=== PATIENT | male | born 1935 | race Two or more races ===

== ENCOUNTER 2021-09-22 11:03 | Inpatient (IN) | payer MEDICARE, BC ==
[~2021-09-22] VITALS: Ht 175.3 cm; Wt 48.7 kg
[2021-09-22] MEDS ORDERED: ALBUTEROL SULF 2.5 MG/0.5ML(0.5%) NEB SOLN NEB ONE (12:00)
[2021-09-22] MEDS ORDERED: IPRATROPIUM BROM 0.5 MG/2.5ML INH SOL NEB ONE (12:00)
[2021-09-22 12:25] LABS: Basophils # (auto) 0 10 ^3/uL (0-0.2); Basophils % (auto) 0.3 % (0.0-2.0); Eosinophils # (auto) 0 10 ^3/uL (0-0.8); Hematocrit 47.7 % (41.0-53.0); Hemoglobin 16.1 g/dL (13.5-17.5); Lymphocytes # (auto) 0.7 10 ^3/uL (0.4-5.4); Mean Corpuscular Hemoglobin 31.8 pg (28.0-32.0); Mean Corpuscular Hgb Conc. 33.7 g/dL (32.0-36.0); Mean Corpuscular Volume 94.4 fL (80.0-100.0); Monocytes # (auto) 0.5 10 ^3/uL (0-1.3); Monocytes % (auto) 8.6 % (0.0-12.0); Neutrophils # (auto) 4.1 10 ^3/uL (1.6-8.6); Neutrophils % (auto) 77.1 % (37.0-80.0); Nucleated Red Blood Cells % 0.1 %; Red Blood Cells 5.06 10^6/uL (4.5-5.90); Red Cell Distribution Width 15.1 % (11.8-14.3); White Blood Cell 5.3 10^3/uL (4.4-10.8)
[2021-09-22 12:54] LABS: Potassium 4.7 mmol/L (3.5-5.1)
[2021-09-22] MEDS ORDERED: DexAMETHasone SOD PHOS 4 MG/1ML SDV INJ IM ONE (13:00)
[2021-09-22 13:04] LABS: Albumin 3.1 g/dL (3.4-5.0); BUN/Creatinine Ratio 27.5; Bilirubin, Total 0.6 mg/dL (0.2-1.0); Calcium 8.5 mg/dL (8.5-10.1); Total Protein 6.9 g/dL (6.4-8.2)
[2021-09-22] MEDS ORDERED: NITROGLYCERIN 0.4 MG SL TAB SL PRN ×2 (13:30→14:30)
[2021-09-22] MEDS ORDERED: MORPHINE SULFATE INJECTION 2 MG/ML SYRG IV PRN ×3 (13:30→14:30)
[2021-09-22] MEDS ORDERED: REMDESIVIR PER PHARMACY 0 ML IV SCH (14:30)
[2021-09-22] MEDS ORDERED: LORazepam 0.5 MG TAB PO PRN (14:30)
[2021-09-22] MEDS ORDERED: DOCUSATE SOD 100 MG CAP PO PRN (14:30)
[2021-09-22] MEDS ORDERED: ALUM & MAG HYDROX-SIMETH LIQ(MAALOX) 30 ML PO PRN (14:30)
[2021-09-22] MEDS ORDERED: HYDROcodone-ACET 5/325MG TAB PO PRN (14:30)
[2021-09-22] MEDS ORDERED: SOD CHL 0.45% 1,000 ML IV SCH (14:30)
[2021-09-22] MEDS ORDERED: ONDANSETRON HCL 4 MG/2 ML VIAL IV PRN (14:30)
[2021-09-22] MEDS ORDERED: ACETAMINOPHEN 500 MG TAB PO PRN (14:30)
[2021-09-22] MEDS ORDERED: ACETAMINOPHEN 325 MG TAB PO PRN (14:30)
[2021-09-22 14:48] LABS: Partial Thromboplastin Time 30.3 sec (23.6-33.0)
[2021-09-22] MEDS ORDERED: hydrALAZINE HCL 20 MG/ML VL IV PRN (15:00)
[2021-09-22 15:18] LABS: Cholesterol 139 mg/dL (< 200); Triglycerides 167 mg/dL (< 150)
[2021-09-22 15:21] LABS: HDL Cholesterol 51 mg/dL (40-59); LDL Cholesterol 66 mg/dL (< 100)
[2021-09-22 15:26] LABS: Thyroid Stimulating Hormone 1.21 uIU/mL (0.358-3.74)
[2021-09-22] MEDS ORDERED: cefTRIAXone 1GM/50ML D5W 50 ML IV ONE (15:30)
[2021-09-22 16:25] LABS: Albumin 3.5 g/dL (3.4-5.0); Calcium 8.4 mg/dL (8.5-10.1); Magnesium 2.6 mg/dL (1.6-2.6); Potassium 4.5 mmol/L (3.5-5.1)
[2021-09-22 16:34] LABS: Bilirubin, Total 0.7 mg/dL (0.2-1.0); CRP High Sensitivity 0.84 mg/dL (< 0.3); Total Protein 6.9 g/dL (6.4-8.2)
[2021-09-22] MEDS ORDERED: SODIUM CHLORIDE 0.9% 1,000 ML IV SCH (17:15)
[2021-09-22] MEDS ORDERED: REMDESIVIR 200 MG in NS 210ml LOADING DOSE ADULT IV ONE ×2 (18:00→20:00)
[2021-09-22] MEDS: BUDESONIDE (INHALATION) 180 MCG IH IN SCH (19:38)
[2021-09-22] MEDS: ALBUTEROL SULF HFA 90MCG INH 200DOSE IN PRN (19:39)
[2021-09-22 20:16] LABS: Lactic Acid w/Reflex 2.4 mmol/L (0.4-2.0)
[2021-09-22] MEDS: ENOXAPARIN SOD 40 MG/0.4 ML SYRINGE SC SCH (21:51)
[2021-09-22] MEDS ORDERED: ATORVASTATIN 20 MG TAB PO SCH (22:00)
[2021-09-22 23:07] VITALS: BP 140/59
[2021-09-22] MEDS: DOXYCYCLINE 100MG/250ML 250 ML IV SCH (23:57)
[2021-09-23] MEDS ORDERED: DUTA1CAP PO (05:06)
[2021-09-23] MEDS ORDERED: NITR-87 PO (05:06)
[2021-09-23] MEDS ORDERED: NITR100C6 PO (05:06)
[2021-09-23 05:17] VITALS: BP 125/62
[2021-09-23 05:45] VITALS: BP 125/62
[2021-09-23] MEDS: BUDESONIDE (INHALATION) 180 MCG IH IN SCH ×2 (07:11→21:56)
[2021-09-23] MEDS: ALBUTEROL SULF HFA 90MCG INH 200DOSE IN PRN ×2 (07:11→21:56)
[2021-09-23 07:17] LABS: Albumin 2.6 g/dL (3.4-5.0); Calcium 7.7 mg/dL (8.5-10.1); Magnesium 2.9 mg/dL (1.6-2.6); Potassium 4.1 mmol/L (3.5-5.1)
[2021-09-23 07:51] LABS: BUN/Creatinine Ratio 41.7; Bilirubin, Total 0.5 mg/dL (0.2-1.0); Total Protein 5.8 g/dL (6.4-8.2); Uric Acid 3.2 mg/dL (3.5-7.2)
[2021-09-23 08:39] LABS: Basophils # (auto) 0 10 ^3/uL (0-0.2); Basophils % (auto) 0.9 % (0.0-2.0); Eosinophils # (auto) 0 10 ^3/uL (0-0.8); Hematocrit 43.2 % (41.0-53.0); Hemoglobin 14.9 g/dL (13.5-17.5); Lymphocytes # (auto) 0.6 10 ^3/uL (0.4-5.4); Mean Corpuscular Hemoglobin 31.8 pg (28.0-32.0); Mean Corpuscular Hgb Conc. 34.4 g/dL (32.0-36.0); Mean Corpuscular Volume 92.4 fL (80.0-100.0); Monocytes # (auto) 0.4 10 ^3/uL (0-1.3); Monocytes % (auto) 10.6 % (0.0-12.0); Neutrophils # (auto) 2.6 10 ^3/uL (1.6-8.6); Neutrophils % (auto) 72.5 % (37.0-80.0); Nucleated Red Blood Cells % 0.3 %; Red Blood Cells 4.68 10^6/uL (4.5-5.90); Red Cell Distribution Width 14.8 % (11.8-14.3); White Blood Cell 3.6 10^3/uL (4.4-10.8)
[2021-09-23 09:00] VITALS: BP 134/64
[2021-09-23] MEDS ORDERED: cefTRIAXone 1GM/50ML D5W 50 ML IV SCH (09:00)
[2021-09-23] MEDS: DOXYCYCLINE 100MG/250ML 250 ML IV SCH ×2 (09:49→22:00)
[2021-09-23] MEDS: CHOLECALCIFEROL (VITD3) 2,000 UNIT CAP/TAB PO SCH (09:50)
[2021-09-23] MEDS: ASCORBIC ACID 1,000 MG TAB PO SCH (09:50)
[2021-09-23] MEDS: ZINC SULFATE 220mg CAP or TAB PO SCH (09:50)
[2021-09-23] MEDS: ENOXAPARIN SOD 40 MG/0.4 ML SYRINGE SC SCH (09:50)
[2021-09-23] MEDS: IVERMECTIN 3 MG TAB PO SCH (09:50)
[2021-09-23] MEDS ORDERED: DexAMETHasone SOD PHOS 10MG/1ML VIAL INJ IV SCH (10:00)
[2021-09-23] MEDS ORDERED: ACETAMINOPHEN 500 MG TAB PO PRN (12:00)
[2021-09-23] MEDS ORDERED: MORPHINE SULFATE INJECTION 2 MG/ML SYRG IV PRN (12:00)
[2021-09-23] MEDS ORDERED: HALOPERIDOL LACTATE 5 MG/ML INJ VIAL IM PRN (12:00)
[2021-09-23 13:00] VITALS: BP 124/69
[2021-09-23] MEDS ORDERED: REMDESIVIR 100mg 100 MG in SODIUM CHL 0.9% 230 ML IV SCH (15:00)
[2021-09-23 17:00] VITALS: BP 127/84
[2021-09-23 22:00] VITALS: BP 134/74
[2021-09-24] MEDS: DOXYCYCLINE 100MG/250ML 250 ML IV SCH ×2 (01:00→09:51)
[2021-09-24 04:41] LABS: Urine Bacteria NONE SEEN /hpf (None Seen); Urine Blood 2+ /uL (Negative); Urine Mucus FEW (None Seen); Urine Specific Gravity 1.033 (1.001-1.035); Urine WBC 8 /hpf (0 - 3)
[2021-09-24 04:49] LABS: Alcohol, Urine < 3.0 mg/dL (0-10); Amphetamine Screen, Urine NEGATIVE (NEGATIVE); Barbiturate Scree,Urine NEGATIVE (NEGATIVE); Benzodiazephine Screen, Urine NEGATIVE (NEGATIVE); Cannabinoid Screen, Urine NEGATIVE (NEGATIVE); Cocaine Screen, Urine NEGATIVE (NEGATIVE); Opiate Scree,Urine NEGATIVE (NEGATIVE); Phencyclidine Screen, Urine NEGATIVE (NEGATIVE)
[2021-09-24 05:00] VITALS: BP 109/51
[2021-09-24] MEDS: BUDESONIDE (INHALATION) 180 MCG IH IN SCH ×2 (06:04→20:09)
[2021-09-24] MEDS: ALBUTEROL SULF HFA 90MCG INH 200DOSE IN PRN (06:04)
[2021-09-24 07:21] LABS: Potassium 4.1 mmol/L (3.5-5.1)
[2021-09-24 07:26] LABS: Albumin 2.6 g/dL (3.4-5.0); BUN/Creatinine Ratio 37.3; Calcium 8.4 mg/dL (8.5-10.1)
[2021-09-24 07:37] LABS: Bilirubin, Total 0.7 mg/dL (0.2-1.0); Total Protein 5.9 g/dL (6.4-8.2)
[2021-09-24 09:00] VITALS: BP 127/52
[2021-09-24] MEDS: CHOLECALCIFEROL (VITD3) 2,000 UNIT CAP/TAB PO SCH (09:51)
[2021-09-24] MEDS: ENOXAPARIN SOD 40 MG/0.4 ML SYRINGE SC SCH (09:51)
[2021-09-24] MEDS: ASCORBIC ACID 1,000 MG TAB PO SCH (09:51)
[2021-09-24] MEDS: ZINC SULFATE 220mg CAP or TAB PO SCH (09:51)
[2021-09-24] MEDS: IVERMECTIN 3 MG TAB PO SCH (09:51)
[2021-09-24 13:00] VITALS: BP 115/75
[2021-09-24 17:00] VITALS: BP 138/72
[2021-09-24 22:00] VITALS: BP 123/74
[2021-09-25 04:52] VITALS: BP 130/72
[2021-09-25] MEDS: BUDESONIDE (INHALATION) 180 MCG IH IN SCH ×2 (07:44→21:39)
[2021-09-25 07:53] LABS: Albumin 2.7 g/dL (3.4-5.0); Potassium 3.5 mmol/L (3.5-5.1)
[2021-09-25 07:56] LABS: BUN/Creatinine Ratio 35.6; Bilirubin, Total 0.8 mg/dL (0.2-1.0); Total Protein 5.8 g/dL (6.4-8.2)
[2021-09-25 08:30] VITALS: BP 130/59
[2021-09-25] MEDS: ASCORBIC ACID 1,000 MG TAB PO SCH (10:00)
[2021-09-25] MEDS: ZINC SULFATE 220mg CAP or TAB PO SCH (10:00)
[2021-09-25] MEDS: CHOLECALCIFEROL (VITD3) 2,000 UNIT CAP/TAB PO SCH (10:00)
[2021-09-25] MEDS: IVERMECTIN 3 MG TAB PO SCH (10:00)
[2021-09-25] MEDS: ENOXAPARIN SOD 40 MG/0.4 ML SYRINGE SC SCH (10:02)
[2021-09-25] MEDS: DOXYCYCLINE 100MG/250ML 250 ML IV SCH ×2 (10:02→21:57)
[2021-09-25 12:30] VITALS: BP 121/61
[2021-09-25 17:00] VITALS: BP 115/70
[2021-09-25 22:04] VITALS: BP 122/61
[2021-09-26 04:37] VITALS: BP 128/67
[2021-09-26] MEDS: DOXYCYCLINE 100MG/250ML 250 ML IV SCH (09:49)
[2021-09-26] MEDS: ZINC SULFATE 220mg CAP or TAB PO SCH (09:49)
[2021-09-26] MEDS: ENOXAPARIN SOD 40 MG/0.4 ML SYRINGE SC SCH (09:50)
[2021-09-26] MEDS: IVERMECTIN 3 MG TAB PO SCH (09:50)
[2021-09-26] MEDS: CHOLECALCIFEROL (VITD3) 2,000 UNIT CAP/TAB PO SCH (09:50)
[2021-09-26] MEDS: ASCORBIC ACID 1,000 MG TAB PO SCH (09:50)
[2021-09-26 12:20] LABS: Hepatitis A Ab IgM Negative; Hepatitis B Core IgM Negative; Hepatitis C Antibody Negative (Negative)
[2021-09-26 17:00] VITALS: BP 120/63
== END 2021-09-26 20:55 | disposition hospice, home (50) | DRG 177 ==
LOC: ER 11:03 → TELE 13:03 → TELE-WESTW 17:46
PROVIDERS: ADMIT Hospitalist; ATTEND Internal Medicine
PROC: XW033E5 Introduction of Remdesivir Anti-infective into Peripheral Vein, Percutaneous Approach, New Technology Group 5 (ICD-10-PCS; principal; 2021-09-22)
DX: U07.1 COVID-19 (principal); G92.8 Other toxic encephalopathy; J96.01 Acute respiratory failure with hypoxia; J12.82 Pneumonia due to coronavirus disease 2019; J44.1 Chronic obstructive pulmonary disease with (acute) exacerbation; E44.0 Moderate protein-calorie malnutrition; J44.0 Chronic obstructive pulmonary disease with (acute) lower respiratory infection; Z68.1 Body mass index [BMI] 19.9 or less, adult; D89.839 Cytokine release syndrome, grade unspecified; E55.9 Vitamin D deficiency, unspecified; Z66 Do not resuscitate; R74.01 Elevation of levels of liver transaminase levels
CPT/HCPCS: 36415; 70450; 71045; 80053; 80061; 80074; 80307; 81001; 82306; 82728; 83036; 83540; 83550; 83605; 83615; 83735; 83880; 84100; 84443; 84484; 84550; 85025; 85379; 85610; 85730; 86141; 87040; 87086; 87426; 93005; 94640; 96365; 96372; 97163; 99291; G0378; J0696; J1100; J3490